=== PATIENT | female | born 1955 | race Caucasian/White ===

== ENCOUNTER 2017-04-16 13:43 | Inpatient (IN) | payer OTHER ==
--- NOTE | ~2017-04-16 | CT71 ---
[facility] A Service of [facility] RADIOLOGY TEXT RESULTS PATIENT: RAMON DUCKWORTH LOCATION: [facility] : 54 UNIT #: [id number] AGE: [address]: Carlin Steele MD SEX: F ORDER DR: [id number] [facility] [place] [address] [facility]. [place], [place] [address] [id number] I MR#: [id number] Acc #: [id number] NAME: RAMON DUCKWORTH : 1955 SEX: F STUDY DATE/TIME: 04/16/2017 15:54 UNIT: [address] ROOM: [facility] STUDY DESCRIPTION: CT Head Wo Contrast Attending Physician: Carlin Steele M.D. Ordering Physician: Kody Guillen M.D. Primary Care Physician: Primary Care Physician No MEDICAL IMAGING REPORT This report is preliminary unless electronic signature is present EXAM CT brain without contrast media HISTORY Left-sided weakness since the 06:00 yesterday and today. TECHNIQUE Axial imaging of the brain was performed without contrast media. Bone and soft tissue windows are reviewed. This CT exam was performed with one or more of the following radiation dose reduction techniques: automatic exposure control, adjustment of mA and/or kV according to patient size, and iterative reconstruction. FINDINGS Intracranially the ventricles and CSF-containing spaces appear normal. No intra or extraaxial mass lesions, fluid collections or mass effect are seen. No focal areas of low attenuation or evidence of acute intracranial hemorrhage. Bone windows are reviewed. The patient does have a debris fluid level in the left maxillary sinus. There is bilateral ethmoid disease. There are bilateral mastoid effusions present. CONCLUSION 1. Normal noncontrast CT of the brain. 2. Acute appearing left maxillary sinusitis. Chronic-appearing ethmoid sinusitis with bilateral mastoid effusions. Dictated by... Konrad Lacey M.D. THIS IS AN ELECTRONICALLY VERIFIED REPORT Konrad Lacey M.D. at 04/17/2017 5:11 PM KAROLINE/leah [facility] A Service of [facility] RADIOLOGY TEXT RESULTS PATIENT: RAMON DUCKWORTH LOCATION: [facility] 303-01 : 53 UNIT #: [id number] AGE: [address]: Carlin Steele MD SEX: F ORDER DR: TD: 04/16/2017 21:42 JOB #: [id number] MEDICAL IMAGING REPORT Page 1 of 1 COPY
--- NOTE | ~2017-04-16 | EKG ---
PATIENT: RAMON DUCKWORTH UNIT #: [id number] Ventricular Rate: 85 BPM Atrial Rate: 85 BPM P-R Interval: 116 ms QRS Duration: 84 ms Q-T Interval: 370 ms QTC Calculation(Bezet): 440 ms P Davy: 62 degrees Calculated R Davy: 47 degrees Calculated T Davy: 67 degrees Diagnosis Line: Normal sinus rhythm with sinus arrhythmia Diagnosis Line: Normal ECG Diagnosis Line: No previous ECGs available Diagnosis Line: Confirmed by KACI ESCOBAR MD ([id number]) on Diagnosis Line: 04/16/2017 10:21:42 PM INTERPRETING MD: SHARON
--- NOTE | ~2017-04-16 | MR17 ---
[facility] A Service of [facility] RADIOLOGY TEXT RESULTS PATIENT: RAMON DUCKWORTH LOCATION: [facility] - : 53 UNIT #: [id number] AGE: [address]: Carlin Steele MD SEX: F ORDER DR: [id number] [facility] [address] [facility]. [place], [place] [address] [id number] I MR#: [id number] Acc #: [id number] NAME: RAMON DUCKWORTH : 1955 SEX: F STUDY DATE/TIME: 04/16/2017 19:29 UNIT: [address] ROOM: [facility] STUDY DESCRIPTION: MR Brain WWo Contrast Attending Physician: Carlin Steele M.D. Ordering Physician: Carlin Steele M.D. Primary Care Physician: Primary Care Physician No MRI CENTER REPORT This report is preliminary unless electronic signature is present. EXAM The week MRI brain without and with IV gadolinium. HISTORY Slurred speech, left arm and leg weakness and numbness for 2 days. FINDINGS MRI brain was performed without and with IV gadolinium. There is a small curvilinear area of restricted diffusion extending from the posterior margin of the right lentiform nucleus to the deep white matter adjacent the posterior body of the right lateral ventricle, compatible with recent acute to subacute infarct, with subtle corresponding areas of increased T2 and FLAIR signal. No additional restricted diffusion. Minimal probable chronic ischemic changes in the deep white matter bilaterally and tiny probable chronic lacunar infarcts in the lentiform nuclei bilaterally. No abnormal enhancement with gadolinium. Bilateral mastoid air cell opacification and additional mucosal thickening in ethmoid air cells bilaterally and in the inferior left maxillary sinus. IMPRESSION 1. Small curvilinear area of restricted diffusion extending from the posterior right lentiform nucleus to the deep white matter adjacent the posterior body of the right lateral ventricle is compatible with subacute infarct. No additional restricted diffusion. No abnormal enhancement with gadolinium. 2. Mild chronic ischemic changes in the deep white matter bilaterally. 3. Bilateral ethmoid and left maxillary sinus mucosal thickening and opacified mastoid air cells bilaterally. [facility] A Service of [facility] RADIOLOGY TEXT RESULTS PATIENT: RAMON DUCKWORTH LOCATION: [facility] 303-01 : 54 UNIT #: [id number] AGE: [address]: Carlin Steele MD SEX: F ORDER DR: Dictated by... Ramon Cedillo M.D. THIS IS AN ELECTRONICALLY VERIFIED REPORT Ramon Cedillo M.D. at 04/17/2017 5:28 PM DFKitty/melany TD: 04/17/2017 00:39 JOB #: [id number] MRI CENTER REPORT Page 1 of 1 COPY
--- NOTE | ~2017-04-16 | CT71 ---
[facility] A Service of [facility] RADIOLOGY TEXT RESULTS PATIENT: RAMON DUCKWORTH LOCATION: [facility] : 53 UNIT #: [id number] AGE: [address]: Carlin Steele MD SEX: F ORDER DR: [id number] [facility] [address] [facility]. [place], [place] [address] [id number] I MR#: [id number] Acc #: [id number] NAME: RAMON DUCKWORTH : 1955 SEX: F STUDY DATE/TIME: 04/17/2017 21:33 UNIT: A PCU ROOM: [facility] STUDY DESCRIPTION: CT Head Wo Contrast Attending Physician: Carlin Steele M.D. Ordering Physician: Michael Byrd M.D. Primary Care Physician: No Primary Care Physician MEDICAL IMAGING REPORT This report is preliminary unless electronic signature is present EXAM CT head without contrast. INDICATION Left-sided weakness since Saturday. Inability to move the left arm since 1900 hours today. PROCEDURE Unenhanced CT of the head. This CT exam was performed with one or more of the following radiation dose reduction techniques: automatic exposure control, adjustment of mA and/or kV according to patient size, and iterative reconstruction. COMPARISON 04/16/17 FINDINGS Mild motion. No acute hemorrhage, abnormal mass effect, extraaxial fluid collection or hydrocephalus. No evidence for acute or early subacute large territory infarct. No depressed calvarial fracture. The paranasal sinuses are predominately clear. Bilateral mastoid air cell effusions similar to the prior. IMPRESSION 1. No acute intracranial findings. 2. Bilateral mastoid air cell effusions unchanged since 04/16/17. Dictated by... Alfred Torres M.D. THIS IS AN ELECTRONICALLY VERIFIED REPORT Alfred Torres M.D. at 04/18/2017 2:26 PM EED/jt [facility] A Service of [facility] RADIOLOGY TEXT RESULTS PATIENT: RAMON DUCKWORTH LOCATION: [facility] : 53 UNIT #: [id number] AGE: [address]: Carlin Steele MD SEX: F ORDER DR: TD: 04/17/2017 23:14 JOB #: [id number] MEDICAL IMAGING REPORT Page 1 of 1 COPY
--- NOTE | ~2017-04-16 | A ---
[facility] DATE: 04/17/17 Patient: RAMON Rubio DONITA Physician: KIKI Address: [address] Room/Bed: [address] [place] [address], Zip: [place] [address] Admit Date: 04/16/17 Date of : 53 Height: 5 1 Weight: 105 48 NUTRITIONAL ASSESSMENT: REASON: Stroke protocol consult Anthropometrics: Ht: 61" Wt: 48 kg BMI: 20 Diet: Heart healthy Assessment: Chart reviewed, events noted. Pt admitted for subacute CVA with no significant PMH. RD spoke with the pt at bedside. Pt reports that her appetite is "great" and has not changed since prior to admission. RD discussed the importance of a heart healthy diet, and provided diet education. Pt was thankful and stated "I know what I need to do, it's just matter of doing it". Pt is agreeable to making small changes to begin with, and agrees that she will stop using salt since this is an issue for her. RD to remain available. Recommendations: 1. Pt to follow a heart healthy diet as instructed by RD. Please consult RD for any further nutritional needs. Respectfully, AYAN VIEIRA RD, LD [facility] cc: client file
--- NOTE | ~2017-04-16 | CR72 ---
[facility] A Service of [facility] RADIOLOGY TEXT RESULTS PATIENT: RAMON DUCKWORTH LOCATION: [facility] : 53 UNIT #: [id number] AGE: [address]: Heron Suarez MD SEX: F ORDER DR: [id number] [facility] [address] [facility]. [place], [place] [address] [id number] E MR#: [id number] Acc #: [id number] NAME: RAMON DUCKWORTH : 1955 SEX: F STUDY DATE/TIME: 04/16/2017 14:41 UNIT: [facility] ROOM: STUDY DESCRIPTION: CR Chest Single View Portable Attending Physician: Heron Suarez M.D. Ordering Physician: Kody Guillen M.D. Primary Care Physician: No Primary Care Physician MEDICAL IMAGING REPORT This report is preliminary unless electronic signature is present A week first and denotes frontal chest 04/16/2017. INDICATIONS 61-year-old female with shortness of air symptoms for 2 days. Tobacco use. TECHNIQUE Frontal chest was performed. COMPARISON We have no comparison studies. FINDINGS Cardiac silhouette is within normal limits for technique. The vascularity is unremarkable. Probable areas of atelectasis/scarring in the lower lung zones, left and right. No effusion, pneumothorax or dense consolidation. IMPRESSION 1. Pulmonary hyperinflation. Probable areas of atelectasis and scarring/fibrotic change in the lower lung zones, left greater than right. No definite superimposed active disease. We have no comparisons for this patient in our system. Dictated by... Romulo Nuñez M.D. THIS IS AN ELECTRONICALLY VERIFIED REPORT Romulo Nuñez M.D. at 04/16/2017 5:24 PM REYNALDO/mima TD: 04/16/2017 16:28 JOB #: [id number] MEDICAL IMAGING REPORT [facility] A Service [facility] RADIOLOGY TEXT RESULTS PATIENT: RAMON DUCKWORTH LOCATION: [facility] : 53 UNIT #: [id number] AGE: [address]: Heron Suarez MD SEX: F ORDER DR: Page 1 of 1 COPY
--- NOTE | ~2017-04-16 | DS ---
Unit #: [id number] #: [id number] Patient: RAMON DUCKWORTH [id number] [facility] [address] [facility]. [place], [place] [address] [id number] I MR#: [id number] NAME: RAMON DUCKWORTH ROOM: 303 Age: 61 Sex: F Admission Date: 04/16/2017 : 1955 Discharge Date: 04/19/2017 Attending Physician: Carlin Steele M.D. Primary Care Physician: No Primary Care Physician DISCHARGE SUMMARY REASON FOR ADMISSION Left sided weakness/subacute CVA. HISTORY OF PRESENT ILLNESS/HOSPITAL COURSE The patient is a very pleasant 61-year-old female with a relatively unremarkable past medical history, not really followed by any primary care physician, who states over the past several days prior to day of admission she began developing left sided weakness as well as difficulty with speaking. She, thus, presented to [facility] for further evaluation. She underwent a CT head noncontrast while in the emergency room which revealed findings consistent with a subacute CVA and, thus, she was admitted for the same. She underwent a CTA head as well, CTA neck as well, which were essentially unremarkable. We placed consultation to Dr. Byrd of neurology services and patient was placed on appropriate stroke protocol. The patient underwent 2D echocardiogram this hospital admission which did show findings consistent with ejection fraction of 60%. Mild mitral and tricuspid regurgitation was noted but there was no acute vegetation and/or clot which was noted on 2D echocardiogram as written by Dr. Spain. Routine laboratory studies were ascertained. Vitamin B12 level was noted to be 235 and low. It was appropriately repleted with vitamin B12 IM while here and, at time of discharge, it should be followed as an outpatient by her primary care physician. Her hemoglobin A1c was noted to be 5.5%. Cardiac enzymes were also cycled and negative. Of note, her TSH was noted to be elevated at 15. She has no prior history of hypothyroidism. She was started on Synthroid 50 mcg while here. She was asked to follow up with her primary care physician after a time through rehab in regards to the same. The patient underwent MRI of brain with and without contrast on 04/16/2017 as per stroke protocol. It did show findings consistent with a small area of restricted diffusion extending from the posterior right lentiform nucleus into the deep white matter adjacent to the posterior body of the right lateral ventricle compatible with subacute infarct. Unit #: [id number] #: [id number] Patient: RAMON DUCKWORTH From 04/16/2017 to 04/18/2017, the patient had increased weakness on her left side. She was anxious during that time period and received Ativan and Librium. Secondary to increased weakness on the left side as well as mental status decline, she underwent a repeat MRI which did show the area that previously was noted to have abnormal restricted diffusion. It was more confluent and conspicuous and slightly larger on comparison to prior film. There was a subtle local mass effect which was also noted. There was no discrete area of new abnormality. There was no evidence of hemorrhagic transformation which was noted. In regards to these findings, physical and occupational therapy services both evaluated and saw the patient, recommended inpatient rehab. Appropriate arrangements have been made for the patient to be transitioned to [facility] later this afternoon. She will require followup with Dr. Enrique Weiss, a neurologist here at [facility], in two weeks. She will also follow up with her primary care physician two weeks post discharge from [facility]. Also noted coincidentally on CT as well as MRI of brain, patient did have an increased amount of fluid within her left sinus. She does state that she has some mild facial pressure and/or pain and, therefore, she will be given a prescription for Ceftin at time of discharge. FINAL DISCHARGE DIAGNOSES 1. Subacute small vessel right basal ganglia ischemic infarct with resultant left sided hemiparesis. 2. Hypertension, new diagnosis. 3. Hypothyroidism, new diagnosis. 4. Hyperlipidemia. 5. Ongoing tobacco abuse. 6. Acute sinusitis. 7. Scoliosis. FINAL DISCHARGE MEDICATIONS 1. Tylenol 650 mg p.o. q.6 p.r.n. 2. Zofran 4 mg p.o. q.6 p.r.n. 3. Nicotine transdermal 21 mcg q. a.m. 4. Norvasc 5 mg p.o. daily. 5. Lipitor 40 mg p.o. q. h.s. 6. Aspirin 325 mg p.o. daily. 7. Naubinway 5/325, one tablet p.o. q.6 p.r.n. 8. Protonix 40 mg p.o. daily. 9. Synthroid 50 mcg p.o. daily. 10. Lisinopril 10 mg p.o. daily. 11. Ceftin 500 mg p.o. b.i.d. x10 days. 12. Claritin 10 mg p.o. daily. DISCHARGE CONDITION Stable. DISCHARGE DISPOSITION Inpatient rehab. Dictated by... Unit #: [id number] #: [id number] Patient: RAMON DUCKWORTH M.D. ISN/dixon TD: 04/19/2017 12:26 JOB #: [id number] DISCHARGE SUMMARY Page 1 of 1 X Carlin Steele MD X DISCHARGE SUMMARY
--- NOTE | ~2017-04-16 | CO ---
Unit #: [id number] #: [id number] Patient: RAMON DUCKWORTH [id number] [facility] [address] [facility]. [place], [place] [address] [id number] I MR#: [id number] NAME: RAMON DUCKWORTH ROOM: 303 Age: 61 Sex: F Admission Date: 04/16/2017 : 1955 Attending Physician: Carlin Steele M.D. Primary Care Physician: Kari Primary Care Physician Requesting Physician: Carlin Steele M.D. Consultation Date: 04/17/2017 CONSULTATION REPORT REASON FOR CONSULT Subacute CVA. PATIENT IDENTIFICATION This is a 61-year-old, right-handed, female evaluated in room 303 at [facility]. SOURCE OF INFORMATION Obtained from the patient, as well as the medical record. HISTORY OF PRESENT ILLNESS This is a 61-year-old, right-handed, female with past medical history of tobacco use. She presents to [facility] with ongoing left-sided weakness. She states that she was in her usual state of health until Saturday when she noticed that she felt a little lightheaded and weak on the left side. She states, however, symptoms resolved and that she did not think too much about it. She states that symptoms returned and that she felt weak on the left side on Saturday night and she decided to go to bed hoping that it would improve. On Saturday, it was not better; therefore, she decided to come to the ER for further evaluation and admission. She was not in the window for alteplase or other acute intervention, as she had symptoms that started 1-[address] prior without resolution. CT of the head done without contrast in the ER on 04/16/17 was normal as far as the brain. CT angiogram of the head and neck was also done, which showed 0% right and 10% left ICA stenosis by NASCET criteria. No intracranial aneurysm or flow-limiting stenosis. The ak chin of Perry appears complete with symmetric intracranial vascularity. There is mcco-ea-urhcoasw or moderate proximal left subclavian artery stenosis about a centimeter or two beyond its origin due to, what appears on axial images to be, some soft plaque. The vertebral arteries are widely patent bilaterally. Mild right vertebral dominance. Also noted left maxillary sinus mucosal disease including an air-fluid level, and there is dental and periodontal disease, but no acute abnormality is seen otherwise. MRI of the brain was done last evening without and with contrast due to her underlying symptoms and normal CT scan. It does show a small curvilinear area of restricted diffusion extending from the posterior right lentiform nucleus to the deep white matter adjacent the posterior body of the right lateral ventricle, compatible with subacute infarct. No additional restricted diffusion seen. No abnormal enhancement with gadolinium. There are some mild chronic ischemic changes in the deep white matter bilaterally and bilateral ethmoid and left maxillary sinus Unit #: [id number] #: [id number] Patient: RAMON DUCKWORTH R mucosal thickening and opacified mastoid air cells bilaterally. EKG shows normal sinus rhythm with sinus arrhythmia and a ventricular rate of 85 beats per minute. Otherwise, labs are essentially unremarkable as far as her CBC. She does have some mild leukocytosis of 1.2. PT INR unremarkable. BMP unremarkable and urinalysis unremarkable. Her TSH is elevated at 15.9. Her B12 is low at 235. Her cholesterol is 192, triglycerides 117, LDL 124, HDL 45. Chest x-ray shows pulmonary hyperinflation with areas of probable atelectasis and scarring. Fibrotic change in the lower lung zones, left greater than right, with no definite superimposed active disease. She denies any exacerbating or alleviating factors. She denies any associated double vision, blurred vision or loss of vision, headache or neck pain, recent illness or injury, falls, change in routine or change in medications. She denies any chest pain, shortness of breath or palpitations or racing heart. She denies any numbness or tingling but reports specifically weakness of her arm and leg. She does admit that it seems to be slightly worse today than yesterday. PAST MEDICAL HISTORY She denies any significant past medical history other than scoliosis and tobacco use. She does not see a primary care physician routinely and does not take any prescription medications. PAST SURGICAL HISTORY Hysterectomy. HOME MEDICATIONS She takes p.r.n. sinus medication, ibuprofen, Aleve and aspirin but does not take on a daily basis. ALLERGIES No known drug allergies. FAMILY HISTORY Positive for coronary artery disease and diabetes mellitus. SOCIAL HISTORY She smokes tobacco and has done so for about 50 years. She denies alcohol abuse or illicit drug use. REVIEW OF SYSTEMS A 14-point review of systems was done. Pertinent positives are as discussed above; otherwise, negative. PHYSICAL EXAMINATION VITAL SIGNS: Temperature 97.7. She has been afebrile. Pulse is 66, respirations 18, blood pressure 154/88. Blood pressure in the ER on arrival was 151/95. Oxygen saturation 99%. Height 5'1", weight 105 pounds. BMI 20. NEUROLOGIC EXAM MENTAL STATUS: The patient is awake, alert and oriented to person, place, time, as well as events. No right/left confusion. No finger agnosia. No aphasia, dysarthria or apraxia. General fund of knowledge is intact. CRANIAL NERVE EXAM: She demonstrates full harris of vision. Eyes are Unit #: [id number] #: [id number] Patient: WHEATRAMON R conjugate without ptosis or nystagmus. Extraocular movements are intact. Sensation of the face and scalp is intact. Strength of muscles of facial expression reveals left lower facial droop with mild flattening of the nasolabial fold. She does not appear to have complete paralysis, however, with movement of her facial muscles. Hearing is intact to finger rub and conversation. Tongue is midline. Her uvula is midline, and palate elevation is normal. Head turning and shoulder shrug were unremarkable. Neck is supple. MOTOR EXAM: On the right side she appears to be intact, 5/5, with no abnormal tone. On the left, she has decreased tone of the left upper extremity and left lower extremity more so in the left upper extremity. She is weak, about 4/5. She can be assessed against cane weigher helper and resistance but has difficulty. She does have a drift of both the left upper and left lower extremity. I did not assess her gait. Will defer to physical therapy. Cardiothoracic Surgeon strength appears to be 4/5 on the left hand, as well. SENSORY EXAM: Intact. GAIT: Again, gait deferred. Romberg deferred. REFLEXES: Unable to elicit. Toes are equivocal. COORDINATION: No ataxia out of proportion to the patient's weakness noted. DIAGNOSTIC STUDIES Labs and diagnostic studies are as discussed above in detail. IMPRESSION 1. Subacute small vessel right ischemic stroke with left-sided weakness. 2. Tobacco abuse. Cessation discussed with patient at length. 3. Hyperlipidemia. Will initiate intensive statin therapy with Lipitor 40 mg p.o. daily. 4. Incidental moderate left subclavian stenosis. 5. B12 deficiency. 6. Elevated TSH. PLAN Will check a two-D echo, await PT/OT recommendations, as she is slightly worse today compared to yesterday. The patient does not wish to go to rehab and would like to be discharged home today. We will await physical therapy and occupational therapy recommendations and discuss with them after their evaluations. I had a long discussion with the patient regarding her risk factors for further stroke especially tobacco abuse and discussed medication regimen. We will put her on full dose aspirin and Lipitor 40. Further recommendations pending discussion with Dr. Byrd and further evaluation and followup on above testing and evaluation. Please call for any questions or issues. We thank you very much for allowing us to assist in the care of this patient. Dictated by... Diaz Walton/debbie TD: 04/17/2017 14:00 JOB #: [id number] Unit #: [id number] #: [id number] Patient: RAMON DUCKWORTH CONSULTATION REPORT Page 1 of 1 X Irene Gambino APRN X CONSULTATION REPORT
--- NOTE | ~2017-04-16 | HP ---
Unit #: [id number] #: [id number] Patient: RAMON DUCKWORTH [id number] [facility] [address] [place], [place] [address] [id number] I MR#: [id number] NAME: RAMON DUCKWORTH. ROOM: 303 Age: 61 Sex: F Admission Date: 04/16/2017 : 1955 Attending Physician: Carlin Steele M.D. HISTORY AND PHYSICAL REASON FOR ADMISSION Subacute CVA. HISTORY OF PRESENT ILLNESS The patient is a very pleasant 61-year-old female with a relatively unremarkable past medical history. She states the last time that she saw a primary care physician or any physician for that matter was approximately two years ago. She states she had a normal/clean bill of health at that point in time. She was apparently at work several days ago when she began developing left-sided weakness, as well as some speech difficulty. Initially, she felt as though she was tired and went home. She had it again today and became concerned as others around her became concerned for the possibility of a medical condition and therefore drove herself to [facility] for further evaluation. While here, she underwent a CT head noncontrast which showed a subacute CVA. Clearly, she was outside of TPA window. A CTA head and neck has been ordered and has been done but currently is being read by Radiology. PAST MEDICAL HISTORY None. PAST SURGICAL HISTORY Hysterectomy. HOME MEDICATIONS P.r.n. sinus medication, Sudafed, and ibuprofen. ALLERGIES No known drug allergies. FAMILY HISTORY Coronary artery disease and diabetes. SOCIAL HISTORY Positive for tobacco use, lifelong smoker. Very rare alcohol use and no illicit drug use. REVIEW OF SYSTEMS Please see History of Present Illness. Twelve points otherwise negative except for those positive and noted in the HPI. PHYSICAL EXAMINATION Unit #: [id number] #: [id number] Patient: RAMON DUCKWORTH VITAL SIGNS: Temperature 97.7, pulse 99, respiratory rate 16, and blood pressure 151/95. GENERAL APPEARANCE: A very pleasant 61-year-old female in no acute distress. HEAD: Atraumatic and normocephalic. EARS: Tympanic membranes do not reveal any erythema or injection. NECK: Supple. No JVD. No carotid bruit. No accessory muscle use. CARDIOVASCULAR: S1 and S2 without murmur. RESPIRATORY: Clear bilaterally. No evidence of any wheezes, rales, or rhonchi. GASTROINTESTINAL/ABDOMEN: Nontender and nondistended. LOWER EXTREMITIES: No evidence of any lower extremity edema and no calf tenderness. NEUROLOGIC: Cranial nerves II-XII were assessed. Patient does have a very obvious left-sided facial droop to which she states that it is actually improving and has improved over the past one to two hours. Upper extremity exam reveals approximately 4 over 5 motor function which she also states has improved. Left lower extremity exam reveals approximate motor function of 5 over 5 initially. She felt as though she could not walk and/or ambulate. However, now she states that she feels as though she has full strength. PSYCHIATRIC: Patient demonstrates normal mood and affect. DIAGNOSTIC STUDIES INITIAL LABORATORY: Hemoglobin 13.8 and white count 11.2. INR 0.9. BMP unremarkable. LFTs unremarkable. Initial urinalysis relatively unremarkable. IMAGING: Chest x-ray, single view, shows hyperinflation, otherwise, no definite acute disease. INITIAL ADMISSION DIAGNOSES 1. Subacute cerebrovascular accident. 2. Left-sided weakness. 3. Tobacco abuse. PLAN Admission to telemetry floor. Neurology consultation. MRI in the a.m. Lipid panel in the a.m. Symptom management. PT/OT evaluation. Possible 2D echo and/or LEIGHTON pending evaluation and discussion with Neurology and/or MRI results once they become available. Patient expresses understanding and agreement of the plan as stated above. She is Full Code. Dictated by Eddy Carmona/margarita TD: 04/16/2017 21:27 JOB #: [id number] Unit #: [id number] #: [id number] Patient: DONITARAMON HISTORY AND PHYSICAL Page 1 of 1 X Carlin Steele MD HISTORY AND PHYSICAL
--- NOTE | ~2017-04-16 | CT17 ---
[facility] Service of [facility] RADIOLOGY TEXT RESULTS PATIENT: RAMON DUCKWORTH LOCATION: [facility] - : 53 UNIT #: [id number] AGE: [address]: Carlin Steele MD SEX: F ORDER DR: [id number] [facility] [address] [place], [place] [address] [id number] I MR#: [id number] Acc #: [id number] NAME: RAMON DUCKWORTH : 1955 SEX: F STUDY DATE/TIME: 04/16/2017 15:57 UNIT: [address] ROOM: [facility] STUDY DESCRIPTION: CT Angio Head Attending Physician: Carlin Steele M.D. Ordering Physician: Kody Guillen M.D. Primary Care Physician: Primary Care Physician No MEDICAL IMAGING REPORT This report is preliminary unless electronic signature is present EXAM Head and neck CT angiogram contrast, 04/16/2017 PROCEDURE Axial contrast-enhanced head and neck CT angiogram with three-dimensional reformats. This CT exam was performed with one or more of the following radiation dose reduction techniques: automatic exposure control, adjustment of mA and/or kV according to patient size, and iterative reconstruction. CLINICAL HISTORY Left side weakness since yesterday. COMPARISON Head CT same date. FINDINGS There is a normal aortic arch branching pattern. There is moderate proximal left subclavian artery stenosis due to soft plaque about a centimeter beyond its origin. Both cervical common carotid arteries and vertebral arteries are widely patent. There is plaque at the cervical carotid bifurcations but 10% left and 0% right ICA stenosis by NASCET criteria. The upper cervical ICAs as are normally patent. Intracranially, there is a left posterior cerebral origin but the huslia of Perry appears complete. The right A1 anterior cerebral is dominant. Distal intracranial runoff is symmetric in the anterior, middle and posterior cerebral distributions and there is no evidence of intracranial aneurysm on either side or branch vessel occlusion. There is no region or zone of hypoperfusion and the dural venous sinuses are normally patent. [facility] of [facility] RADIOLOGY TEXT RESULTS PATIENT: RAMON DUCKWORTH LOCATION: [facility] 303-01 : [birth year] UNIT #: [id number] AGE: [address]: Carlin Steele MD SEX: F ORDER DR: There is left maxillary mucosal thickening and an air-fluid level, and there are dental caries and some periapical lucencies better assessed on dental exam and dental radiography. There is a partial opacification of the mastoids bilaterally. There is cervical spinal degenerative change as well as some emphysematous change in the lung apices. The cervical soft tissues however are unremarkable. IMPRESSION 1. 0% right and 10% left ICA stenosis by NASCET criteria. 2. No intracranial aneurysm or flow-limiting stenosis. The huslia of Perry appears complete and there is symmetric intracranial vascularity. 3. Mild to moderate or moderate proximal left subclavian artery stenosis about a centimeter or two beyond its origin due to what appears on axial images to be some soft plaque. The vertebral arteries are widely patent bilaterally. There is mild right vertebral dominance. 4. Left maxillary sinus mucosal disease including an air-fluid level and there is dental and periodontal disease but no acute abnormality is seen otherwise. Dictated by... Jaleel Maciel M.D. THIS IS AN ELECTRONICALLY VERIFIED REPORT Jaleel Maciel M.D. at 04/19/2017 2:19 PM RUFUS/melany TD: 04/16/2017 22:44 JOB #: [id number] MEDICAL IMAGING REPORT Page 1 of 1 COPY
--- NOTE | ~2017-04-16 | MR18 ---
[facility] A Service of [facility] RADIOLOGY TEXT RESULTS PATIENT: RAMON DUCKWORTH LOCATION: [facility] - : 53 UNIT #: [id number] AGE: [address]: Carlin Steele MD SEX: F ORDER DR: [id number] [facility] [address] [place], [place] [address] [id number] I MR#: [id number] Acc #: [id number] NAME: RAMON DUCKWORTH : 1955 SEX: F STUDY DATE/TIME: 04/18/2017 10:32 [facility]: [facility] STUDY DESCRIPTION: MR Brain Wo Contrast Attending Physician: Carlin Steele M.D. Ordering Physician: Michael Byrd M.D. Primary Care Physician: Primary Care Physician No MRI CENTER REPORT This report is preliminary unless electronic signature is present. EXAM Brain MRI without HISTORY New onset flaccid left arm. Left side weakness starting on 04/14/2017 with acute changes last evening and interval worsening of left arm weakness. FINDINGS MRI of the brain was performed without contrast. The comparison study is from 04/16/2017. As noted in the history there is progression of left-sided weakness since comparison exam. The area of previously noted abnormally restricted diffusion involving the posterior superior right basal ganglia including the internal capsule is more confluent and conspicuous and slightly larger on comparison to prior film. There is subtle local mass effect now seen. There is no discrete new area of abnormality nor is there evidence for hemorrhagic transformation. Again lesion consistent with a recent small vessel insult. There is no extraaxial fluid collection. There is no hydrocephalus. There is otherwise mild white matter disease which is nonspecific and likely due to small vessel disease and a small lacune in the left putamen. Largest area of currently restricted diffusion is about 1.7 x 0.9 cm in the axial plane where it previously measured about 1.2 x 0.6 cm. There is a large amount of fluid or inflammatory change in the mastoid air cells bilaterally. Suspect soft tissue swelling in the external auditory canals also and please correlate with findings on physical examination. The status of the middle ear is not clear. Findings noted on prior study also. No Chiari-I malformation. Midline structures are unremarkable. Paranasal sinus disease is present with air-fluid level in the left maxillary sinus in addition to moderate mucosal disease. Mild mucosal STS. [facility] A Service of [facility] RADIOLOGY TEXT RESULTS PATIENT: RAMON DUCKWORTH LOCATION: [facility] 303-01 : 53 UNIT #: [id number] AGE: [address]: Carlin Steele MD SEX: F ORDER DR: disease in the right maxillary antrum. Partial opacification of the bilateral ethmoid air cells and disease in the hypoplastic left sphenoid sinus. Paranasal sinus disease is worsening when compared to 04/16/2017. The major intracranial flow voids are maintained. IMPRESSION 1. On comparison to the study from 04/16/2017, the known recent ischemic insult centered at the posterior right basal ganglia involving the posterior limb of the right internal capsule is more conspicuous and more confluent and slightly larger with mild increase in mass effect when comparison is made to the prior study. There is however no evidence for hemorrhagic transformation and no new area of recent ischemia is appreciated. This is probably a small vessel insult. Please correlate further clinically. 2. Interval worsening of paranasal sinus disease including worsening acute sinusitis involving the left maxillary sinus. There is also a large amount of fluid or inflammatory change in the mastoid air cells bilaterally and it appears that there is soft tissue swelling in the external auditory canals. Please correlate with physical exam findings. STAT * RESULT Dictated by... Deepti Campo M.D. THIS IS AN ELECTRONICALLY VERIFIED REPORT Deepti Campo M.D. at 04/18/2017 4:30 PM Naveed TD: 04/18/2017 11:58 JOB #: [id number] MRI CENTER REPORT Page 1 of 1 COPY
[~2017-04-16 13:43] MED LIST: AMOXICILLIN PO; BACTRIM DS TABL1 TAB PO; CLEOCIN PO; MIRALAX255 GM PO; PREDNISONE PO; VICODIN 5/500 T1 TAB PO; VICODIN PO
[2017-04-16 14:48] LABS: BASOPHIL# 0.1 X10e3 (0-0.3); BASOPHIL% 0.8 % (0-2.5); EOSINOPHIL# 1.3 X10e3 (0-0.7); EOSINOPHIL% 11.7 % (0.0-7.0); HEMATOCRIT 43.8 % (35.0-45.0); HEMOGLOBIN 13.8 gm/dL (12.0-16.0); LYMPHOCYTE# 2.4 X10e3 (1.0-3.5); LYMPHOCYTE% 21.2 % (17.0-45.0); MEAN CELL VOLUME 87.3 FL (83-96); MEAN CORPUSCULAR HEMOGLOBIN 27.6 PG (28-34); MEAN CORPUSCULAR HGB CONC 31.6 g/dL (30-36); MEAN PLATELET VOLUME 8.6 FL (6.5-11.5); MONOCYTE# 0.8 X10e3 (0-1.0); MONOCYTE% 7.6 % (3.0-12.0); NEUTROPHIL# 6.6 X10e3 (1.5-7.1); NEUTROPHIL% 58.7 % (40-75); PLATELET COUNT 303 X10e3 (140-420); RED BLOOD COUNT 5.02 X10e (3.90-5.30); RED CELL DISTRIBUTION WIDTH 16.1 % (11.0-15.5); WHITE BLOOD COUNT 11.2 X10e3 (4.0-10.5)
[2017-04-16 14:48] LABS: POC - CKMB 1.1 ng/mL (0.0-7.9); POC - TROPONIN <0.05 ng/mL (<=0.05)
[2017-04-16 14:49] LABS: DIFF IND NO
[2017-04-16 15:06] LABS: INR 0.9; PARTIAL THROMBOPLASTIN TIME 25.1 SECONDS (23.5-31.3); PROTHROMBIN TIME (PATIENT) 9.8 SECONDS (9.6-11.5)
[2017-04-16 15:11] LABS: ALBUMIN SERUM 3.7 g/dL (3.5-5.0); ALKALINE PHOSPHATASE 77 U/L (32-92); ALT (SGPT) 17 U/L (10-40); AST (SGOT) 20 U/L (10-42); BILIRUBIN,TOTAL 0.6 mg/dL (0.2-2.0); BLOOD UREA NITROGEN 11 mg/dL (9-23); BUN/CREATININE RATIO 18.33; CALCIUM SERUM 9.1 mg/dL (8.4-10.2); CARBON DIOXIDE 26 mmol/L (22-31); CHLORIDE 107 mmol/L (100-111); CREATININE SERUM 0.6 mg/dL (0.6-1.4); GLOM FILT RATE Estimated 97.7 mL/min (>60); GLUCOSE FASTING 100 mg/dL (70-110); POTASSIUM 3.8 mmol/L (3.5-5.1); PROTEIN TOTAL SERUM 6.9 g/dL (6.0-8.3); SODIUM 139 mmol/L (135-145)
[2017-04-16 15:19] LABS: BILIRUBIN, DIRECT <0.1 mg/dL (0.0-0.2); BILIRUBIN,INDIRECT 0.5 mg/dL (0.0-0.9)
[2017-04-16 15:26] LABS: URINE SOURCE CLEAN CATCH
[2017-04-16 15:37] LABS: URINE APPEARANCE CLEAR; URINE BILIRUBIN NEG (NEG); URINE BLOOD NEG (NEG); URINE COLOR YELLOW; URINE GLUCOSE NEG (NEG); URINE KETONE NEG (NEG); URINE LEUKOCYTE ESTERASE NEG (NEG); URINE NITRATE NEG (NEG); URINE PROTEIN NEG (NEG); URINE SPECIFIC GRAVITY 1.016 (1.003-1.035)
[2017-04-16] MEDS ORDERED: NO MEDICATIONS (18:05)
[2017-04-17 06:32] LABS: ALBUMIN SERUM 3.5 g/dL (3.5-5.0); BILIRUBIN,TOTAL 0.8 mg/dL (0.2-2.0); BUN/CREATININE RATIO 11.66; CALCIUM SERUM 8.8 mg/dL (8.4-10.2); CREATININE SERUM 0.6 mg/dL (0.6-1.4); GLOM FILT RATE Estimated 97.7 mL/min (>60); MAGNESIUM 1.8 mg/dL (1.6-3.0); PROTEIN TOTAL SERUM 6.2 g/dL (6.0-8.3)
[2017-04-17 13:42] LABS: BASOPHIL# 0.1 X10e3 (0-0.3); BASOPHIL% 0.6 % (0-2.5); EOSINOPHIL# 1.3 X10e3 (0-0.7); EOSINOPHIL% 12.7 % (0.0-7.0); HEMATOCRIT 41.8 % (35.0-45.0); HEMOGLOBIN 13.6 gm/dL (12.0-16.0); LYMPHOCYTE# 2.5 X10e3 (1.0-3.5); LYMPHOCYTE% 23.9 % (17.0-45.0); MEAN CORPUSCULAR HEMOGLOBIN 28.2 PG (28-34); MEAN CORPUSCULAR HGB CONC 32.4 g/dL (30-36); MEAN PLATELET VOLUME 8.8 FL (6.5-11.5); MONOCYTE# 0.7 X10e3 (0-1.0); NEUTROPHIL# 5.8 X10e3 (1.5-7.1); NEUTROPHIL% 55.8 % (40-75); PLATELET COUNT 285 X10e3 (140-420); WHITE BLOOD COUNT 10.5 X10e3 (4.0-10.5)
[2017-04-17 13:43] LABS: DIFF IND NO
[2017-04-17 13:56] LABS: PARTIAL THROMBOPLASTIN TIME 25.6 SECONDS (23.5-31.3)
[2017-04-17 14:19] LABS: ALBUMIN SERUM 3.5 g/dL (3.5-5.0); BILIRUBIN,TOTAL 0.3 mg/dL (0.2-2.0); CALCIUM SERUM 8.8 mg/dL (8.4-10.2); CREATININE SERUM 0.5 mg/dL (0.6-1.4); GLOM FILT RATE Estimated 103.7 mL/min (>60); POTASSIUM 3.6 mmol/L (3.5-5.1); PROTEIN TOTAL SERUM 6.6 g/dL (6.0-8.3)
[2017-04-17 14:37] LABS: %MB 4.9 % (0.0-4.0)
[2017-04-19] MEDS ORDERED: MR XX (10:30)
== END 2017-04-19 18:47 | DRG 65 ==
LOC: CED 13:43 → C3A PCU 17:15 → CEDOF 17:15 → CED 18:31 → CEDOF 18:31 → C3A PCU 20:54
PROVIDERS: Emergency Medicine; Family Medicine
PROC: B325YZZ Computerized Tomography (CT Scan) of Bilateral Common Carotid Arteries using Other Contrast (ICD-10-PCS; 2017-04-16)
PROC: B32GYZZ Computerized Tomography (CT Scan) of Bilateral Vertebral Arteries using Other Contrast (ICD-10-PCS; 2017-04-16)
PROC: B246YZZ Ultrasonography of Right and Left Heart using Other Contrast (ICD-10-PCS; principal; 2017-04-17)
DX: I63.8 Other cerebral infarction (principal); G81.94 Hemiplegia, unspecified affecting left nondominant side; I10 Essential (primary) hypertension; Z90.710 Acquired absence of both cervix and uterus; Z83.3 Family history of diabetes mellitus; Z82.49 Family history of ischemic heart disease and other diseases of the circulatory system; F17.210 Nicotine dependence, cigarettes, uncomplicated; Z71.6 Tobacco abuse counseling; I70.8 Atherosclerosis of other arteries; E53.8 Deficiency of other specified B group vitamins; E78.5 Hyperlipidemia, unspecified; E03.9 Hypothyroidism, unspecified; J01.90 Acute sinusitis, unspecified; M41.9 Scoliosis, unspecified; R29.702 NIHSS score 2
CPT/HCPCS: 36415; 70450; 70496; 70498; 70551; 70553; 71010; 80048; 80053; 80061; 80076; 81003; 82550; 82553; 82607; 82947; 83036; 83735; 84443; 84484; 85025; 85610; 85730; 92523-GN; 92526; 92610; 93005; 93306; 94760; 97110; 97112; 97116; 97162; 97167; 97535; 99285; 99406; A9577; C9113; G8997-GN; G8998-GN; G9165-GN; G9166-GN; G9167-GN; J2060; J2405; J2930; J3420; Q9967